=== PATIENT | male | born 1975 | race African-American/Black ===

== ENCOUNTER 2016-08-04 03:24 | Inpatient (IN) | payer OTHER ==
--- NOTE | ~2016-08-04 | HP ---
Unit #: [id number] #: [id number] Patient: ARABELLA LOWERY [id number] [address] [address] [id number] I MR#: [id number] NAME: ARABELLA LOWERY ROOM: 462 Age: 41 Sex: M Admission Date: 08/04/2016 : 1975 Attending Physician: Monico Rivas M.D. Primary Care Physician: No Primary Care Physician HISTORY AND PHYSICAL HISTORY AND EXAM Mr. Lowery is a pleasant 41-year-old gentleman who has a history of perforated diverticulitis requiring emergent surgical resection with colostomy formation. After he recovered he subsequently had a reversal in April of 2014 and has been doing well since then until the last 24 hours. Over the last 24 hours he has developed colicky abdominal pain followed by nausea and nonbloody emesis. He had a normal bowel movement yesterday that was formed and was not consistent with hematochezia or melena. He has not had any hematemesis. Because of the discomfort and vomiting he came to the emergency room and in the emergency room a CT scan was consistent with possible partial small bowel obstruction versus ileus. Near the site of his colonic anastomosis there is a possible transition zone. PAST MEDICAL HISTORY 1. Asthma. 2. Diverticular disease as described. ALLERGIES Sulfa drugs. CURRENT MEDICATIONS He is not currently on any medications and states he does not use an inhaler. FAMILY HISTORY Hypertension. SOCIAL HISTORY , nonsmoker, social alcohol drinker, denies the use of recreational drugs. REVIEW OF SYSTEMS No fever, chills or night sweats. No dysuria. No productive cough. No hematemesis, hematochezia or melena. PHYSICAL EXAMINATION VITAL SIGNS: On current examination he is 5 foot 9 and 200 pounds. His temperature is 97.6. Pulse 88 and regular. Respirations 14. Blood pressure 141/82. GENERAL: Awake, alert and oriented. HEENT: NG tube is in position and the output is mostly mucus that is slightly serosanguineous. HEENT unremarkable. Unit #: [id number] #: [id number] Patient: ARABELLA LOWERY CARDIAC EXAM: Regular rhythm. LUNGS: Clear. ABDOMEN: Slightly distended. He does not have any localized tenderness or involuntary guarding. There is no rebound tenderness. EXTREMITIES: No edema. NEUROLOGICALLY: Grossly intact. DIAGNOSTIC STUDIES LABORATORY: Comprehensive metabolic panel is entirely within normal limits. Amylase and lipase are both normal. White count 6200 with normal differential, hemoglobin 15.7, platelets 256,000. Urinalysis is negative for infection. IMAGING: CT scan no other findings other than the possibility of a partial small bowel obstruction. ASSESSMENT AND PLAN Small bowel obstruction versus ileus: We plan on hydrating the patient and decompressing him with an NG tube and reevaluating him with abdominal films in the morning. We will give him an opportunity to see if this will resolve spontaneously but I did discuss with the patient the possibility of surgical exploration. He understands and agrees to proceed. Dictated by Marielena Leos/edy TD: 08/04/2016 13:52 JOB #: [id number] HISTORY AND PHYSICAL X Monico Rivas MD X HISTORY AND PHYSICAL
--- NOTE | ~2016-08-04 | CR63 ---
[facility] A Service of [facility] & [facility] RADIOLOGY TEXT RESULTS PATIENT: ARABELLA LOWERY LOCATION: [facility] 462-01 : 75 UNIT #: [id number] AGE: [address]: Monico Rivas MD SEX: M ORDER DR: [id number] [facility] [address] [place], [place] [address] [id number] I MR#: [id number] Acc #: [id number] NAME: ARABELLA LOWERY : 1975 SEX: M STUDY DATE/TIME: 08/06/2016 8:30 UNIT: [facility] ROOM: [facility] STUDY DESCRIPTION: CR Chest 2 View Attending Physician: Monico Rivas M.D. Ordering Physician: Monico Rivas M.D. Primary Care Physician: Primary Care Physician No MEDICAL IMAGING REPORT This report is preliminary unless electronic signature is present EXAM PA and lateral chest 2 views, 08/06/2016 COMPARISON None HISTORY Abdominal pain and fever since August 04. FINDINGS PA and lateral examination of the chest upright shows a good expansion of the parenchyma with a normal distribution of the pulmonary vascularity. There is no indication of congestion, effusion, infiltrate, tumor, or nodular density. The pleural reflections and diaphragmatic contours are normal. The cardiac silhouette and mediastinal anatomy is within normal limits. IMPRESSION Normal chest. Dictated by... Juan Manuel M.D. THIS IS AN ELECTRONICALLY VERIFIED REPORT Juan Manuel M.D. at 08/08/2016 3:43 PM JORDON/cassie TD: 08/06/2016 13:07 JOB #: [id number] MEDICAL IMAGING REPORT COPY
--- NOTE | ~2016-08-04 | CR4 ---
[facility] A Service of [facility] & [facility] RADIOLOGY TEXT RESULTS PATIENT: ARABELLA LOWERY LOCATION: [facility] 462-01 : 75 UNIT #: [id number] AGE: [address]: Monico Rivas MD SEX: M ORDER DR: [id number] [id number] [facility]. [place], [place] [address] [id number] I MR#: [id number] Acc #: [id number] NAME: ARABELLA LOWERY : 1975 SEX: M STUDY DATE/TIME: 08/05/2016 7:33 UNIT: [facility] ROOM: [facility] STUDY DESCRIPTION: CR Abdomen Flat Upright or Dec Attending Physician: Monico Rivas M.D. Ordering Physician: Monico Rivas M.D. Primary Care Physician: Primary Care Physician No MEDICAL IMAGING REPORT This report is preliminary unless electronic signature is present EXAM Flat and upright abdomen INDICATION 41-year male with abdominal pain and constipation for [address] of the abdomen and pelvis from 08/04/2016. FINDINGS There is an NG tube in the stomach. Oral contrast in the colon. Nonobstructed bowel gas pattern. Atelectasis in the left lung base. IMPRESSION NG tube in the stomach. Nonobstructed bowel gas pattern. Dictated by... Pasquale Barber M.D. THIS IS AN ELECTRONICALLY VERIFIED REPORT Pasquale Barber M.D. at 08/05/2016 4:55 PM ALEX/sven TD: 08/05/2016 09:36 JOB #: [id number] MEDICAL IMAGING REPORT COPY
--- NOTE | ~2016-08-04 | CT2 ---
[facility] A Service of [facility] RADIOLOGY TEXT RESULTS PATIENT: ARABELLA LOWERY LOCATION: [facility] 462-01 : 75 UNIT #: [id number] AGE: [address]: Monico Rivas MD SEX: M ORDER DR: [id number] [facility] [address] [place], [place] [address] [id number] I MR#: [id number] Acc #: [id number] NAME: ARABELLA LOWERY : 1975 SEX: M STUDY DATE/TIME: 08/04/2016 4:16 UNIT: [facility] ROOM: 2 STUDY DESCRIPTION: CT Abd and Pelv W Cont Attending Physician: Monico Rivas M.D. Ordering Physician: Chelsea Brenner M.D. Primary Care Physician: No Primary Care Physician MEDICAL IMAGING REPORT This report is preliminary unless electronic signature is present EXAM CT abdomen and pelvis, with contrast, 08/04/2016 at 04:16. HISTORY 41-year-old male; severe left upper quadrant abdominal pain and nausea for 2 hours prior to arrival tonight. COMPARISON STUDIES CT abdomen and pelvis, 08/31/2014 at 23:04. TECHNIQUE 5-mm axial images from the lung bases through the lesser trochanters after intravenous and enteric contrast administration. Sagittal and coronal reformatted images were obtained. This CT exam was performed with one or more of the following radiation dose reduction techniques: automatic exposure control, adjustment of mA and/or kV according to patient size, and iterative reconstruction. FINDINGS ABDOMEN: Mild atelectatic changes are present within the bilateral lower lobes. No dense consolidations are seen. Liver, gallbladder, spleen, pancreas, adrenals and kidneys are normal. There are abnormally dilated small bowel loops in the left mid abdomen. Transition zone is thought to be in the left mid abdomen (See series 602, image 27 and series 2, image 56 denoted by arrows). Findings are suspicious for high-grade bowel obstruction. The transition zone lies near the level of the surgical anastomosis of the descending colon. Adhesion is suspected. Additional, there is a small bowel containing umbilical hernia, but the herniated bowel does not appear thickened or inflamed. The appendix is normal. [facility] A Service of [facility] RADIOLOGY TEXT RESULTS PATIENT: ARABELLA LOWERY LOCATION: [facility] 462-01 : 75 UNIT #: [id number] AGE: [address]: Monico Rivas MD SEX: M ORDER DR: PELVIS: The urinary bladder is moderately distended with fluid. Prostate and rectum are normal. No pelvic adenopathy or free fluid. IMPRESSION 1. Findings consistent with small bowel obstruction with transition zone in the left mid abdomen. The transition segment lies immediately adjacent to surgical anastomosis of the descending colon. This suggests obstruction may be due to adhesion. 2. Normal appendix. 3. Mild bibasilar atelectasis. 4. Small bowel containing umbilical hernia without evidence of focal incarceration or obstruction in fat level. Dictated by... Libby Vu M.D. THIS IS AN ELECTRONICALLY VERIFIED REPORT Libby Vu M.D. at 08/04/2016 9:58 PM HALEIGH/elma TD: 08/04/2016 13:06 JOB #: [id number] MEDICAL IMAGING REPORT COPY
[~2016-08-04 03:24] MED LIST: ALB/IPRATROPIUM/1 EA INH; AUGMENTIN PO; CIPROFLOXACIN500 M1 PO; CLEOCIN PO; FLAGYL PO; HYDROCODON-ACE1 EAC9 PO; HYDROCODON-ACE1 EACH PO; LORTAB 10-5001 EACH PO; NO MEDICATIONS
[2016-08-04 04:21] LABS: BASOPHIL# 0.1 X10e3 (0-0.3); BASOPHIL% 1.1 % (0-2.5); EOSINOPHIL# 0.3 X10e3 (0-0.7); EOSINOPHIL% 4.2 % (0.0-7.0); HEMATOCRIT 47.9 % (38.0-50.0); HEMOGLOBIN 15.7 gm/dL (13.0-16.0); LYMPHOCYTE# 1.2 X10e3 (1.0-3.5); LYMPHOCYTE% 19.9 % (17.0-45.0); MEAN CELL VOLUME 89.2 FL (83-96); MEAN CORPUSCULAR HEMOGLOBIN 29.3 PG (28-34); MEAN CORPUSCULAR HGB CONC 32.9 g/dL (30-36); MEAN PLATELET VOLUME 8.8 FL (6.5-11.5); MONOCYTE# 1.2 X10e3 (0-1.0); MONOCYTE% 19.5 % (3.0-12.0); NEUTROPHIL# 3.4 X10e3 (1.5-7.1); NEUTROPHIL% 55.3 % (40-75); PLATELET COUNT 256 X10e3 (140-420); RED BLOOD COUNT 5.37 X10e (3.90-5.60); WHITE BLOOD COUNT 6.2 X10e3 (4.0-10.5)
[2016-08-04 04:24] LABS: DIFF IND NO
[2016-08-04 04:47] LABS: ALBUMIN SERUM 4.2 g/dL (3.5-5.0); ALKALINE PHOSPHATASE 69 U/L (32-92); ALT (SGPT) 34 U/L (10-40); AMYLASE 19 U/L (0-46); AST (SGOT) 37 U/L (10-42); BILIRUBIN,TOTAL 0.5 mg/dL (0.2-2.0); BLOOD UREA NITROGEN 12 mg/dL (9-23); BUN/CREATININE RATIO 13.33; CALCIUM SERUM 8.8 mg/dL (8.4-10.2); CARBON DIOXIDE 29 mmol/L (22-31); CHLORIDE 101 mmol/L (100-111); CREATININE SERUM 0.9 mg/dL (0.6-1.4); GLOM FILT RATE Estimated ABOVE60 mL/min (>60); GLUCOSE FASTING 115 mg/dL (70-110); LIPASE 24 U/L (22-51); POTASSIUM 3.8 mmol/L (3.5-5.1); PROTEIN TOTAL SERUM 7.7 g/dL (6.0-8.3); SODIUM 136 mmol/L (135-145)
[2016-08-04 04:50] LABS: BILIRUBIN, DIRECT 0.1 mg/dL (0.0-0.2); BILIRUBIN,INDIRECT 0.4 mg/dL (0.0-0.9)
[2016-08-04 06:23] LABS: URINE SOURCE CLEAN CATCH
[2016-08-04 06:29] LABS: URINE APPEARANCE CLEAR; URINE BILIRUBIN NEG (NEG); URINE BLOOD NEG (NEG); URINE COLOR YELLOW; URINE GLUCOSE NEG (NEG); URINE KETONE NEG (NEG); URINE LEUKOCYTE ESTERASE NEG (NEG); URINE NITRATE NEG (NEG); URINE PH 6.5 (5-8); URINE PROTEIN TRACE (NEG); URINE SPECIFIC GRAVITY 1.026 (1.003-1.035)
[2016-08-04 06:33] LABS: CULTURE INDICATED? NO
[2016-08-05 03:12] LABS: BASOPHIL% 0.6 % (0-2.5); EOSINOPHIL# 0.2 X10e3 (0-0.7); EOSINOPHIL% 2.2 % (0.0-7.0); HEMATOCRIT 48.7 % (38.0-50.0); HEMOGLOBIN 15.6 gm/dL (13.0-16.0); LYMPHOCYTE% 12.2 % (17.0-45.0); MEAN CELL VOLUME 89.2 FL (83-96); MEAN CORPUSCULAR HEMOGLOBIN 28.7 PG (28-34); MEAN CORPUSCULAR HGB CONC 32.1 g/dL (30-36); MEAN PLATELET VOLUME 8.5 FL (6.5-11.5); MONOCYTE% 12.9 % (3.0-12.0); NEUTROPHIL# 5.8 X10e3 (1.5-7.1); NEUTROPHIL% 72.1 % (40-75); PLATELET COUNT 248 X10e3 (140-420); RED BLOOD COUNT 5.46 X10e (3.90-5.60); RED CELL DISTRIBUTION WIDTH 15.9 % (11.0-15.5); WHITE BLOOD COUNT 8.1 X10e3 (4.0-10.5)
[2016-08-05 03:13] LABS: DIFF IND NO
[2016-08-05 03:32] LABS: BLOOD UREA NITROGEN 9 mg/dL (9-23); CALCIUM SERUM 8.7 mg/dL (8.4-10.2); CARBON DIOXIDE 29 mmol/L (22-31); CHLORIDE 102 mmol/L (100-111); GLOM FILT RATE Estimated ABOVE60 mL/min (>60); GLUCOSE FASTING 96 mg/dL (70-110); MAGNESIUM 1.9 mg/dL (1.6-3.0); PHOSPHOROUS 3.6 mg/dL (2.5-4.6); SODIUM 134 mmol/L (135-145)
== END 2016-08-06 20:35 | disposition home or self-care (01) | DRG 390 ==
LOC: CED 03:24 → CEDOF 06:10 → C4C 10:58
PROVIDERS: Psychiatry & Neurology Psychiatry; Student in an Organized Health Care Education/Training Program
PROC: 0D9670Z Drainage of Stomach with Drainage Device, Via Natural or Artificial Opening (ICD-10-PCS; principal; 2016-08-04)
DX: K56.60 Unspecified intestinal obstruction (principal); Z88.2 Allergy status to sulfonamides
CPT/HCPCS: 36415; 71020; 74020; 74177; 80048; 80076; 81003; 82150; 83690; 83735; 84100; 85025; 94640; 94760; 96361; 96374; 96375; 99285; C9113; J1170; J1650; J2270; J2405; Q9967

== ENCOUNTER 2016-08-20 06:50 | Emergency (ER) | payer OTHER ==
--- NOTE | ~2016-08-20 | EKG ---
PATIENT: ARABELLA LOWERY UNIT #: [id number] Ventricular Rate: 125 BPM Atrial Rate: 125 BPM P-R Interval: 154 ms QRS Duration: 90 ms Q-T Interval: 314 ms QTC Calculation(Bezet): 453 ms P [place]: 62 degrees Calculated R [place]: 73 degrees Calculated T [place]: 53 degrees Diagnosis Line: Sinus tachycardia Diagnosis Line: Otherwise normal ECG Diagnosis Line: No previous ECGs available Diagnosis Line: Confirmed by JOSSY GROVER MD ([id number]) on 08/21/2016 Diagnosis Line: 9:14:11 PM INTERPRETING MD: LENORE PEDRO
--- NOTE | ~2016-08-20 | CR2 ---
[facility] A Service of [facility] & [facility] RADIOLOGY TEXT RESULTS PATIENT: ARABELLA LOWERY LOCATION: [facility] : 75 UNIT #: [id number] AGE: [address]: Monico Caban MD SEX: M ORDER DR: [id number] [id number] [facility]. [place], [place] [address] [id number] E MR#: [id number] Acc #: [id number] NAME: ARABELLA LOWERY : 1975 SEX: M STUDY DATE/TIME: 08/20/2016 6:27 UNIT: [facility] ROOM: STUDY DESCRIPTION: CR Abdomen Acute Series Attending Physician: Monico Caban M.D. Ordering Physician: Hannah Bhatia M.D. Primary Care Physician: Primary Care Physician No MEDICAL IMAGING REPORT This report is preliminary unless electronic signature is present EXAM Acute abdominal series INDICATION Abdominal pain for 1 day. Patient has a history of diverticulitis. FINDINGS On the upright chest radiograph, patient does appear to have some cardiomegaly. No definite vascular congestion is seen. There is no pneumothorax, pleural effusion or definite acute infiltrate although I do think there is some bibasilar atelectasis right greater than left. No free air is seen beneath the diaphragm. Bowel gas pattern is unremarkable with air and fecal material noted throughout the colon and no dilated loops of small bowel or air-fluid levels seen. Surgical clips are identified within the left upper quadrant. IMPRESSION No acute disease. Dictated by... Neva Wolff M.D. THIS IS AN ELECTRONICALLY VERIFIED REPORT Neva Wolff M.D. at 08/20/2016 3:41 PM AFF/sven TD: 08/20/2016 10:39 JOB #: [id number] MEDICAL IMAGING REPORT Page 1 of 1 COPY
[2016-08-20 06:00] LABS: POC - CKMB 3.5 ng/mL (0.0-7.9); POC - TROPONIN <0.05 ng/mL (<=0.05)
[2016-08-20 06:29] LABS: BASOPHIL# 0.1 X10e3 (0-0.3); BASOPHIL% 0.9 % (0-2.5); EOSINOPHIL# 0.1 X10e3 (0-0.7); EOSINOPHIL% 0.7 % (0.0-7.0); HEMATOCRIT 47.4 % (38.0-50.0); HEMOGLOBIN 15.4 gm/dL (13.0-16.0); LYMPHOCYTE# 1.7 X10e3 (1.0-3.5); LYMPHOCYTE% 16.1 % (17.0-45.0); MEAN CORPUSCULAR HEMOGLOBIN 28.9 PG (28-34); MEAN CORPUSCULAR HGB CONC 32.5 g/dL (30-36); MEAN PLATELET VOLUME 8.7 FL (6.5-11.5); MONOCYTE# 0.9 X10e3 (0-1.0); MONOCYTE% 8.3 % (3.0-12.0); NEUTROPHIL# 7.8 X10e3 (1.5-7.1); PLATELET COUNT 376 X10e3 (140-420); RED BLOOD COUNT 5.33 X10e (3.90-5.60); WHITE BLOOD COUNT 10.6 X10e3 (4.0-10.5)
[2016-08-20 06:31] LABS: DIFF IND NO
[2016-08-20 06:57] LABS: ALBUMIN SERUM 4.4 g/dL (3.5-5.0); BILIRUBIN, DIRECT 0.1 mg/dL (0.0-0.2); BILIRUBIN,INDIRECT 0.4 mg/dL (0.0-0.9); BILIRUBIN,TOTAL 0.5 mg/dL (0.2-2.0); BUN/CREATININE RATIO 12.72; CALCIUM SERUM 9.5 mg/dL (8.4-10.2); CREATININE SERUM 1.1 mg/dL (0.6-1.4); GLOM FILT RATE Estimated 96.2 mL/min (>60); POTASSIUM 3.3 mmol/L (3.5-5.1); PROTEIN TOTAL SERUM 8.2 g/dL (6.0-8.3)
[2016-08-20 08:11] LABS: URINE SOURCE CLEAN CATCH
[2016-08-20 08:20] LABS: URINE APPEARANCE CLEAR; URINE BILIRUBIN NEG (NEG); URINE BLOOD NEG (NEG); URINE COLOR YELLOW; URINE GLUCOSE NEG (NEG); URINE KETONE NEG (NEG); URINE LEUKOCYTE ESTERASE NEG (NEG); URINE NITRATE NEG (NEG); URINE PROTEIN NEG (NEG); URINE SPECIFIC GRAVITY 1.006 (1.003-1.035); URINE UROBILINOGEN 0.2 MG/DL (NEG)
[2016-08-20 08:33] LABS: CULTURE INDICATED? NO
== END 2016-08-20 09:05 | disposition home or self-care (01) ==
LOC: CED 06:50
PROVIDERS: Emergency Medicine
DX: R10.9 Unspecified abdominal pain (principal); Z88.2 Allergy status to sulfonamides
CPT/HCPCS: 36415; 74022; 80048; 80076; 81003; 82150; 82553; 83690; 84484; 85025; 93005; 96361; 96374; 96375; 99284; C9113; J2270; J2405

== ENCOUNTER 2016-10-12 23:21 | Emergency (ER) | payer OTHER ==
--- NOTE | ~2016-10-12 | CR72 ---
[facility] A Service of [facility] & [facility] RADIOLOGY TEXT RESULTS PATIENT: ARABELLA LOWERY LOCATION: [facility] : 75 UNIT #: [id number] AGE: [address]: Hannah Bhatia MD SEX: M ORDER DR: [id number] [id number] [place], [place] [address] [id number] E MR#: [id number] Acc #: [id number] NAME: ARABELLA LOWERY : 1975 SEX: M STUDY DATE/TIME: 10/13/2016 0:33 UNIT: [facility] ROOM: STUDY DESCRIPTION: CR Chest Single View Portable Attending Physician: Hannah Bhatia M.D. Ordering Physician: Hannah Bhatia M.D. Primary Care Physician: No Primary Care Physician MEDICAL IMAGING REPORT This report is preliminary unless electronic signature is present EXAM Single view chest INDICATIONS Shortness of air. Chest tightness. FINDINGS Single portable AP view of the chest compared to 08/20/2016. Heart and mediastinal contours normal. Lungs are clear. IMPRESSION No acute cardiopulmonary findings. Dictated by... Carlos A East M.D. THIS IS AN ELECTRONICALLY VERIFIED REPORT Carlos A East M.D. at 10/13/2016 2:46 AM RPC/bethany TD: 10/13/2016 02:43 JOB #: [id number] MEDICAL IMAGING REPORT Page 1 of 1 COPY
--- NOTE | ~2016-10-12 | EKG ---
PATIENT: ARABELLA LOWERY UNIT #: [id number] Ventricular Rate: 124 BPM Atrial Rate: 124 BPM P-R Interval: 148 ms QRS Duration: 94 ms Q-T Interval: 326 ms QTC Calculation(Bezet): 468 ms P [place]: 48 degrees Calculated R [place]: 69 degrees Calculated T [place]: 29 degrees Diagnosis Line: Sinus tachycardia Diagnosis Line: Otherwise normal ECG Diagnosis Line: When compared with ECG of 20-AUG-2016 05:28, Diagnosis Line: Nonspecific T wave abnormality now evident in Diagnosis Line: Lateral leads Diagnosis Line: Confirmed by OSMANI PERLA MD ([id number]) on Diagnosis Line: 10/13/2016 3:46:30 PM INTERPRETING MD: MINDA PEDRO
[2016-10-13 00:58] LABS: BASOPHIL# 0.1 X10e3 (0-0.3); BASOPHIL% 0.5 % (0-2.5); EOSINOPHIL% 0.4 % (0.0-7.0); HEMATOCRIT 49.7 % (38.0-50.0); LYMPHOCYTE# 1.2 X10e3 (1.0-3.5); LYMPHOCYTE% 11.6 % (17.0-45.0); MEAN CELL VOLUME 90.3 FL (83-96); MEAN CORPUSCULAR HEMOGLOBIN 29.1 PG (28-34); MEAN CORPUSCULAR HGB CONC 32.2 g/dL (30-36); MEAN PLATELET VOLUME 8.8 FL (6.5-11.5); MONOCYTE# 0.9 X10e3 (0-1.0); MONOCYTE% 8.9 % (3.0-12.0); NEUTROPHIL# 8.3 X10e3 (1.5-7.1); NEUTROPHIL% 78.6 % (40-75); PLATELET COUNT 314 X10e3 (140-420); RED CELL DISTRIBUTION WIDTH 15.3 % (11.0-15.5); WHITE BLOOD COUNT 10.6 X10e3 (4.0-10.5)
[2016-10-13 01:01] LABS: DIFF IND NO
[2016-10-13 01:06] LABS: POC - CKMB 3.1 ng/mL (0.0-7.9); POC - TROPONIN <0.05 ng/mL (<=0.05)
[2016-10-13 01:21] LABS: ALBUMIN SERUM 4.5 g/dL (3.5-5.0); BILIRUBIN, DIRECT 0.1 mg/dL (0.0-0.2); BILIRUBIN,INDIRECT 0.8 mg/dL (0.0-0.9); BILIRUBIN,TOTAL 0.9 mg/dL (0.2-2.0); BUN/CREATININE RATIO 8.57; CALCIUM SERUM 8.9 mg/dL (8.4-10.2); CREATININE SERUM 1.4 mg/dL (0.6-1.4); GLOM FILT RATE Estimated 71.8 mL/min (>60); POTASSIUM 3.1 mmol/L (3.5-5.1); PROTEIN TOTAL SERUM 8.3 g/dL (6.0-8.3)
[2016-10-13 02:08] LABS: POC - TROPONIN <0.05 ng/mL (<=0.05)
== END 2016-10-13 03:57 | disposition home or self-care (01) ==
LOC: CED 23:21
PROVIDERS: Emergency Medicine
DX: F41.0 Panic disorder [episodic paroxysmal anxiety] (principal); R06.02 Shortness of breath; F17.200 Nicotine dependence, unspecified, uncomplicated; Z88.2 Allergy status to sulfonamides
CPT/HCPCS: 36415; 71010; 80048; 80076; 82553; 84484; 85025; 85379; 93005; 99284

== ENCOUNTER 2016-12-15 01:01 | Emergency (ER) | payer OTHER ==
[~2016-12-15] VITALS: Ht 175.3 cm; Wt 83.9 kg
--- NOTE | ~2016-12-15 | CR72 ---
[facility] A Service of [facility] & [facility] RADIOLOGY TEXT RESULTS PATIENT: ARABELLA LOWERY LOCATION: [facility] : 75 UNIT #: [id number] AGE: [address]: Oni Carrillo MD SEX: M ORDER DR: [id number] [facility] [address] [place], [place] [address] [id number] E MR#: [id number] Acc #: [id number] NAME: ARABELLA LOWERY : 1975 SEX: M STUDY DATE/TIME: 12/15/2016 02:53 UNIT: [facility] ROOM: STUDY DESCRIPTION: CR Chest Single View Portable Attending Physician: Oni Carrillo M.D. Ordering Physician: Oni Carrillo M.D. Primary Care Physician: Primary Care Physician No MEDICAL IMAGING REPORT This report is preliminary unless electronic signature is present EXAM Portable chest, 12/15 at 02:53 hours INDICATION Shortness of air and weakness that started yesterday. Dehydration. COMPARISON 10/13/2016 FINDINGS A single AP portable view of the chest shows both lungs to be clear. The heart is normal in size. The mediastinal contour is normal. No significant bone abnormalities are seen. IMPRESSION Normal portable chest. Dictated by... Monico Stuart Jr., M.D. THIS IS AN ELECTRONICALLY VERIFIED REPORT Monico Stuart Jr., M.D. at 12/15/2016 9:23 PM NICOLE/cassie TD: 12/15/2016 15:16 JOB #: [id number] MEDICAL IMAGING REPORT Page 1 of 1 COPY
--- NOTE | ~2016-12-15 | EKG ---
PATIENT: ARABELLA LOWERY UNIT #: [id number] Ventricular Rate: 127 BPM Atrial Rate: 127 BPM P-R Interval: 148 ms QRS Duration: 82 ms Q-T Interval: 306 ms QTC Calculation(Bezet): 444 ms P [place]: 52 degrees Calculated R [place]: -50 degrees Calculated T [place]: 53 degrees Diagnosis Line: Sinus tachycardia Diagnosis Line: Possible Left atrial enlargement Diagnosis Line: Left axis deviation Diagnosis Line: Abnormal ECG Diagnosis Line: When compared with ECG of 12-OCT-2016 23:33, Diagnosis Line: QRS axis Shifted left Diagnosis Line: Confirmed by AMADOU ARAIZA MD ([id number]) on Diagnosis Line: 12/16/2016 8:17:14 PM INTERPRETING MD: JOSÉ
[2016-12-15 01:54] LABS: BASOPHIL# 0.1 X10e3 (0-0.3); BASOPHIL% 0.6 % (0-2.5); EOSINOPHIL% 0.2 % (0.0-7.0); HEMOGLOBIN 16.2 gm/dL (13.0-16.0); LYMPHOCYTE# 1.5 X10e3 (1.0-3.5); LYMPHOCYTE% 15.7 % (17.0-45.0); MEAN CELL VOLUME 90.1 FL (83-96); MEAN CORPUSCULAR HEMOGLOBIN 29.9 PG (28-34); MEAN CORPUSCULAR HGB CONC 33.2 g/dL (30-36); MEAN PLATELET VOLUME 8.3 FL (6.5-11.5); MONOCYTE% 10.4 % (3.0-12.0); NEUTROPHIL# 7.2 X10e3 (1.5-7.1); NEUTROPHIL% 73.1 % (40-75); PLATELET COUNT 315 X10e3 (140-420); RED BLOOD COUNT 5.44 X10e (3.90-5.60); RED CELL DISTRIBUTION WIDTH 15.1 % (11.0-15.5); WHITE BLOOD COUNT 9.9 X10e3 (4.0-10.5)
[2016-12-15 01:56] LABS: DIFF IND NO
[2016-12-15 02:07] LABS: POC - CKMB 2.3 ng/mL (0.0-7.9); POC - TROPONIN <0.05 ng/mL (<=0.05)
[2016-12-15 04:01] LABS: URINE SOURCE CLEAN CATCH
[2016-12-15 04:06] LABS: URINE APPEARANCE CLEAR; URINE BILIRUBIN NEG (NEG); URINE BLOOD NEG (NEG); URINE COLOR YELLOW; URINE GLUCOSE NEG (NEG); URINE KETONE 1+ (NEG); URINE LEUKOCYTE ESTERASE NEG (NEG); URINE NITRATE NEG (NEG); URINE PROTEIN NEG (NEG); URINE SPECIFIC GRAVITY 1.012 (1.003-1.035)
[2016-12-15 04:15] LABS: AMPHETAMINE POS (NEG); BARBITURATES NEG (NEG); BENZODIAZEPINES NEG (NEG); COCAINE NEG (NEG); CULTURE INDICATED? NO; MARIJUANA POS (NEG); OPIATES NEG (NEG); TRICYCLIC ANTIDEPRESSANTS NEG (NEG); U METHADONE NEG (NEG)
[2016-12-15 05:22] LABS: POC - CKMB 1.8 ng/mL (0.0-7.9); POC - TROPONIN <0.05 ng/mL (<=0.05)
[2016-12-15 06:27] LABS: BUN/CREATININE RATIO 12.5; CALCIUM SERUM 8.5 mg/dL (8.4-10.2); CREATININE SERUM 1.2 mg/dL (0.6-1.4); GLOM FILT RATE Estimated 86.6 mL/min (>60); POTASSIUM 3.9 mmol/L (3.5-5.1)
== END 2016-12-15 06:35 | disposition home or self-care (01) ==
LOC: CED 01:01
PROVIDERS: Emergency Medicine
DX: T67.5XXA Heat exhaustion, unspecified, initial encounter (principal); F41.9 Anxiety disorder, unspecified; Z88.2 Allergy status to sulfonamides
CPT/HCPCS: 36415; 71010; 80048; 80307; 81003; 82550; 82553; 84484; 85025; 93005; 96360; 96361; 99285